=== PATIENT | female | born 1960 | race African-American/Black ===

== ENCOUNTER 2021-05-13 20:57 | Emergency (ER) | payer OTHER, MEDICAID ==
[~2021-05-13] VITALS: Ht 170.2 cm; Wt 84.8 kg
[2021-05-13 21:01] VITALS: BP_SYST 141
[2021-05-13 21:32] LABS: EOSINOPHILS # (AUTO) 0.2 K/uL (0.0-0.4); HEMATOCRIT 39.3 % (36-48); HEMOGLOBIN 13.3 g/dL (12.0-16.0); LYMPHOCYTES # (AUTO) 1.6 K/uL (1.0-5.5); LYMPHOCYTES % (AUTO) 33.6 % (20.5-51.5); MEAN CORPUSCULAR HEMOGLOBIN 31 pg (27-31); MEAN CORPUSCULAR HGB CONC 34 % (32-36); MEAN CORPUSCULAR VOLUME 92 fL (79.0-98.0); MONOCYTES # (AUTO) 0.5 K/uL (0.0-1.0); MONOCYTES % (AUTO) 10.9 % (1.7-9.3); NEUTROPHILS # (AUTO) 2.3 K/uL (1.8-7.7); NEUTROPHILS % (AUTO) 49.5 % (40.0-70.0); PLATELET COUNT (AUTO) 213 K/uL (130-430); RED BLOOD CELL COUNT(AUTO) 4.28 MIL/uL (4.2-6.2); RED CELL DISTRIBUTION WIDTH 14.6 % (9.0-15.0); WHITE BLOOD COUNT (AUTO) 4.7 K/uL (4.8-10.8)
[2021-05-13 21:40] LABS: CREATININE 0.96 mg/dL (0.55-1.30); POTASSIUM 4.6 mmol/L (3.5-5.1)
[2021-05-13 21:45] LABS: TOTAL BILIRUBIN 0.1 mg/dL (0.0-1.0)
[2021-05-14 03:30] VITALS: BP_SYST 138
== END 2021-05-14 03:30 | disposition home or self-care (01) ==
LOC: SED 20:57
DX: K60.2 Anal fissure, unspecified (principal); I10 Essential (primary) hypertension
CPT/HCPCS: 36415; 76376; 80053; 85025; 99285